=== PATIENT | male | born 1980 | race African-American/Black ===

== ENCOUNTER 2019-07-22 13:10 | Emergency (ER) | payer OTHER ==
[~2019-07-22] VITALS: Ht 177.8 cm; Wt 68.0 kg
--- NOTE | 2019-07-22 13:20 | NUR ---
"voices telling me to run into traffic", -HI. Patient a/ox4, breathing even and unlabored, no sob noted. Needs attended. Kept comfortable.
[2019-07-22 14:06] LABS: APPEARANCE,URINE Clear (CLEAR); BILIRUBIN,URINE Negative (NEGATIVE); BLOOD, URINE Negative Ery/uL (NEGATIVE); COLOR,URINE Yellow (YELLOW); KETONES,URINE Negative (NEGATIVE); LEUKOCYTE ESTERASE ,URINE Negative (NEGATIVE); NITRITE, URINE Negative (NEGATIVE); PH,URINE 5.5 (5.0-8.0); PROTEIN,URINE Negative (NEGATIVE); UGLUCOSE Negative (NEGATIVE); UROBILINOGEN,URINE 0.2 EU/dL (0.2)
[2019-07-22 14:11] LABS: BASOPHILS # (AUTO) 0.1 /CMM (0.0-0.2); BASOPHILS % (AUTO) 0.9 % (0.0-2.0); EOSINOPHILS % (AUTO) 2.1 % (0.0-6.0); HEMATOCRIT 35 % (39-51); HEMOGLOBIN 11.8 g/dL (13.5-17.5); LYMPHOCYTES # (AUTO) 1.4 /CMM (0.8-4.8); MEAN CORPUSCULAR HGB CONC 33 g/dl (31.0-36.0); MEAN CORPUSCULAR VOLUME 100 fL (80-96); MONOCYTES # (AUTO) 0.7 /CMM (0.1-1.30); MONOCYTES % (AUTO) 12.5 % (2.0-12.0); NEUTROPHILS # (AUTO) 3.6 /CMM (1.8-8.9); NEUTROPHILS % (AUTO) 60.5 % (43.0-81.0); PLATELET COUNT (AUTO) 159 /CMM (150-450); RED BLOOD CELL COUNT(AUTO) 3.56 MIL/uL (4.5-6.0); WHITE BLOOD COUNT (AUTO) 5.9 K/uL (4.3-11.0)
[2019-07-22 14:23] LABS: CALCIUM, SERUM 8.5 mg/dL (8.5-10.1); CARBON DIOXIDE 29 mmol/L (21-32); CHLORIDE 101 mmol/L (98-107); GLUCOSE 94 mg/dL (74-106); POTASSIUM 3.8 mmol/L (3.5-5.1); SODIUM SERUM 140 mmol/L (136-145); UREA NITROGEN, BLOOD 13 mg/dL (7-18)
[2019-07-22 14:28] LABS: ALANINE AMINOTRANSFERASE 49 U/L (12-78); ALBUMIN 3.4 g/dL (3.4-5.0); ALCOHOL, BLOOD < 3 mg/dL (0-0); ALKALINE PHOSPHATASE 67 U/L (46-116); ASPARTATE AMINOTRANSFERASE 41 U/L (15-37); BILIRUBIN,DIRECT 0.1 mg/dL (0.0-0.2); BILIRUBIN,TOTAL 0.3 mg/dL (0.2-1.0); TOTAL PROTEIN, SERUM 6.6 g/dL (6.4-8.2)
[2019-07-22 14:34] LABS: ACETAMINOPHEN 0 ug/ml (10-30); SALICYLATE 0.8 mg/dL (2.8-20.0)
--- NOTE | 2019-07-22 14:47 | NUR ---
CALLED [facility] TO FOLLOW UP. INFORMED THAT THEY HAVE NOT RECIEVED CLINICALS. WILL SEND AGAIN
--- NOTE | 2019-07-22 16:18 | NUR ---
CALLED [facility] [phone] AWAITING CALL BACK.
--- NOTE | 2019-07-22 19:15 | NUR ---
pt received from [facility]. pt in bed sleeping. no distress noted.
--- NOTE | 2019-07-22 21:18 | NUR ---
TRANSFER INFO: PT ACCEPTED TO [facility] MD: DR. FRIEDMAN AND DR. GALVEZ NUMBER FOR REPORT: [phone]
--- NOTE | 2019-07-22 23:14 | NUR ---
CALLED [facility] FOR TRANSPORTATION, UNABLE TO VERIFY INSURANCE. CALLED [facility] FOR TRANSPORTATION, ETA [phone]
--- NOTE | 2019-07-23 01:11 | NUR ---
REPORT GIVEN TO MAURICIO GILBERT FOR [facility] AT THE [facility].
[2019-07-23 01:18] VITALS: BP 125/87
--- NOTE | 2019-07-23 01:21 | NUR ---
[facility] AT BEDSIDE FOR TRANSPORT TO [facility]. NAD NOTED. PT IS STABLE FOR TRANSPORT. REPORT GIVEN
== END 2019-07-23 01:23 ==
LOC: ER 13:14
DX: F20.9 Schizophrenia, unspecified (principal); F19.10 Other psychoactive substance abuse, uncomplicated; D64.9 Anemia, unspecified
CPT/HCPCS: 36415; 80048; 80076; 80305; 80307; 80329; 81001; 85025; 99285; G0480; 81000-TC

== ENCOUNTER 2019-08-02 23:31 | Emergency (ER) | payer OTHER ==
[~2019-08-02] VITALS: Ht 177.8 cm; Wt 70.3 kg
--- NOTE | 2019-08-02 23:35 | NUR ---
PT CAME INTO THE ED C/O SI W/ A PLAN TO RUN THRU TRAFFIC. PT APPEARS TO BE PARANOID. HE STATES THAT "SOMEONE IS OUT THERE AFTER ME". PT ALERT, RESPIRATIONS EVEN AND UNLABORED ON RA W NAD NOTED. PT CONNECTED TO THE MONITOR AND POX, CHANGED INTO GOWN, BELONGINGS TO LOCKER. SITTER AT BEDSIDE FOR SAFETY. SUICIDE PRECAUTIONS IMPLEMENTED
--- NOTE | 2019-08-03 | NUR ---
SECURITY AT BEDSIDE FOR WANDING
[2019-08-03 00:27] LABS: BASOPHILS # (AUTO) 0.1 /CMM (0.0-0.2); EOSINOPHILS % (AUTO) 0.7 % (0.0-6.0); HEMATOCRIT 40 % (39-51); HEMOGLOBIN 13.4 g/dL (13.5-17.5); LYMPHOCYTES # (AUTO) 1.9 /CMM (0.8-4.8); LYMPHOCYTES % (AUTO) 17.6 % (20.0-44.0); MEAN CORPUSCULAR HGB CONC 34 g/dl (31.0-36.0); MEAN CORPUSCULAR VOLUME 99 fL (80-96); MONOCYTES # (AUTO) 0.8 /CMM (0.1-1.30); MONOCYTES % (AUTO) 7.7 % (2.0-12.0); NEUTROPHILS # (AUTO) 7.8 /CMM (1.8-8.9); PLATELET COUNT (AUTO) 270 /CMM (150-450); RED BLOOD CELL COUNT(AUTO) 3.99 MIL/uL (4.5-6.0); WHITE BLOOD COUNT (AUTO) 10.7 K/uL (4.3-11.0)
[2019-08-03 00:39] LABS: APPEARANCE,URINE Slightly Cloudy (CLEAR); BILIRUBIN,URINE Negative (NEGATIVE); BLOOD, URINE Negative Ery/uL (NEGATIVE); COLOR,URINE Yellow (YELLOW); KETONES,URINE Negative (NEGATIVE); LEUKOCYTE ESTERASE ,URINE Negative (NEGATIVE); NITRITE, URINE Negative (NEGATIVE); PH,URINE 6.5 (5.0-8.0); PROTEIN,URINE Trace mg/dl (NEGATIVE); UGLUCOSE Negative (NEGATIVE); UROBILINOGEN,URINE 0.2 EU/dL (0.2)
[2019-08-03 00:41] LABS: CALCIUM, SERUM 9.2 mg/dL (8.5-10.1); CARBON DIOXIDE 29 mmol/L (21-32); CHLORIDE 102 mmol/L (98-107); CREATININE 1.1 mg/dL (0.6-1.3); GLUCOSE 101 mg/dL (74-106); POTASSIUM 3.9 mmol/L (3.5-5.1); SODIUM SERUM 140 mmol/L (136-145); UREA NITROGEN, BLOOD 14 mg/dL (7-18)
[2019-08-03 00:45] LABS: ACETAMINOPHEN 0 ug/ml (10-30); ALANINE AMINOTRANSFERASE 44 U/L (12-78); ALBUMIN 4.4 g/dL (3.4-5.0); ALKALINE PHOSPHATASE 82 U/L (46-116); ASPARTATE AMINOTRANSFERASE 38 U/L (15-37); BILIRUBIN,DIRECT 0.1 mg/dL (0.0-0.2); BILIRUBIN,TOTAL 0.2 mg/dL (0.2-1.0); SALICYLATE 2.3 mg/dL (2.8-20.0)
[2019-08-03 00:46] LABS: ALCOHOL, BLOOD < 3 mg/dL (0-0)
[2019-08-03 01:59] LABS: BACTERIA,URINE Few /HPF (None Seen); SPERM,URINE Many /HPF (None Seen); SQUAMOUS EPITHELIAL CELL,UR Few /HPF (None Seen)
--- NOTE | 2019-08-03 02:43 | NUR ---
PT SLEEPING AND RESTING COMFORTABLY IN BED. VSS. NO ACUTE DISTRESS NOTED. SITTER AT BESIDE FOR SAFETY
--- NOTE | 2019-08-03 02:45 | NUR ---
PT ACCEPTED TO [facility] BY DR NAIK. UNIT [address], # FOR REPORT [phone]
--- NOTE | 2019-08-03 03:03 | NUR ---
[facility] CALL THE CAR CALLED FOR BLS TRANSPORT. RESERVATION # [id number]
--- NOTE | 2019-08-03 03:11 | NUR ---
CALL THE CAR CALLED REGARDING TRANSPORT ETA @[phone] [facility].
--- NOTE | 2019-08-03 03:19 | NUR ---
REPORT GIVEN TO VON MARTÍNEZ AT [facility] FOR [facility].
[2019-08-03 04:44] VITALS: BP 142/87
--- NOTE | 2019-08-03 04:44 | NUR ---
PT SLEEPING AND RESTING COMFORTABLY IN BED. VSS. NO ACUTE DISTRESS NOTED. SITTER AT BESIDE FOR SAFETY
--- NOTE | 2019-08-03 05:56 | NUR ---
REPORT GIVEN TO EMS. PT STABLE FOR TRANSFER
== END 2019-08-03 06:39 ==
LOC: ER 23:34
DX: R45.851 Suicidal ideations (principal); F31.9 Bipolar disorder, unspecified; F20.9 Schizophrenia, unspecified
CPT/HCPCS: 36415; 80048; 80076; 80305; 80307; 80329; 81001; 85025; 99285; G0480; 81000-TC; 87086-TC